=== PATIENT | male | born 1960 | race Caucasian/White ===

== ENCOUNTER → 2016-05-11 | Outpatient (CLI) | payer OTHER ==
--- NOTE | 2016-05-11 08:00 | MR ---
EXAMINATION TYPE: MR angio head wo con DATE OF EXAM: 05/11/2016 7:03 AM COMPARISON: MRA brain 08 March 2013 HISTORY: occipital neuralgia, hx of aneurysm TECHNIQUE: Time of flight images focusing on the [place] were performed without contrast. FINDINGS: The exam is stable. Posterior and anterior circulation are patent. No evident aneurysm. No significant vasculitis or evident vascular malformation. Internal carotid arteries are patent, verteb robasilar system is patent. Vertebral arteries are codominant. Extensive sinus disease noted bilatera lly within the maxillary sinus, ethmoid air cells and frontal sinus incidentally. IMPRESSION: Stable exam. No abnormality evident to account for patient's symptoms ,additional findings above.
== END | disposition home or self-care (01) ==
LOC: RADMRIMAIN 06:39
PROVIDERS: ATTEND Psychiatry & Neurology Neurology
DX: M54.81 Occipital neuralgia (principal)
CPT/HCPCS: 70544

== ENCOUNTER → 2018-07-29 | Day surgery (SDC) | payer OTHER ==
[2018-07-27 09:18] VITALS: BMI 24.9
[~2018-07-29] MED LIST: GLYCOPYRROLATE 0.2 MG/ML 2 ML VIAL ONE; LACTATED RINGERS 1,000 ML IV SCH; LIDOCAINE 1% 20 ML VIAL (10MG/ML) FOR IV START INTRADERMA ONE; LIDOCAINE 1% INJ 10MG/ML (20 ML MDV) ONE; MIDAZOLAM 2 MG/2 ML VIAL IVP ONE; PROPOFOL 10 MG/ML 20 ML VIAL IV ONE
[2018-07-29 08:23] VITALS: TEMP 97
--- NOTE | 2018-07-29 09:45 | P.GSHP ---
History of Present Illness H&P Date: 07/29/18 Chief Complaint: Screening colonoscopy This is a 58-year-old male referred from Dr. Kieran Gardner. Patient presents today for screening colonoscopy. He denies a significant GI complaints. Past Medical History Past Medical History: Hyperlipidemia Additional Past Medical History / Comment(s): HX BRAIN BLEED-2013. CHANGE IN BOWEL HABITS History of Any Multi-Drug Resistant Organisms: None Reported Past Surgical History: Heart Catheterization, Hernia Repair, Orthopedic Surgery Additional Past Surgical History / Comment(s): COLONOSCOPY Past Anesthesia/Blood Transfusion Reactions: Previous Problems w/ Anesthesia Additional Past Anesthesia/Blood Transfusion Reaction / Comment(s): GET VERY ANXIOUS WITH ANESTHESIA Smoking Status: Current every day smoker - Past Family History Mother Family Medical History: No Reported History Medications and Allergies Home Medications Medication Instructions Recorded Confirmed Type Atorvastatin [Lipitor] 40 mg PO HS 07/27/18 07/29/18 History Tolterodine ER [Detrol LA] 2 mg PO DAILY 07/29/18 07/29/18 History Allergies Allergy/AdvReac Type Severity Reaction Status Date / Time Penicillins Allergy Unknown Verified 07/27/18 09:07 Childhood Surgical - Exam Vital Signs Temp Pulse Resp BP Pulse Ox 97.0 F L 81 16 98/64 95 07/29/18 08:16 07/29/18 08:16 07/29/18 08:16 07/29/18 08:16 07/29/18 08:16 - General well developed, well nourished, no distress - Eyes PERRL - ENT normal pinna - Neck no masses - Respiratory normal expansion - Cardiovascular Rhythm: regular - Abdomen Abdomen: soft, non tender Assessment and Plan Assessment: We'll perform screening colonoscopy.
--- NOTE | 2018-07-29 09:56 | P.OP ---
Date of Procedure: 07/29/18 Preoperative Diagnosis: Screening colonoscopy Postoperative Diagnosis: Normal colonoscopy Procedure(s) Performed: Colonoscopy Anesthesia: MAC Surgeon: Cb Beckman Pathology: none sent Condition: stable Disposition: PACU Description of Procedure: PROCEDURE: The patient was placed on the endoscopy table in the lateral position. Digital rectal examination was performed which revealed no abnormalities. The prostate was symmetrical without nodules. Flexible colonoscope was then placed in the patient's anus and passed throughout the entire colon. The ileocecal valve was visualized. The cecum, ascending, transverse, descending and sigmoid colon were normal. The rectum was normal as well. There were no masses, polyps or diverticula noted in the entire colon. SUMMARY OF FINDINGS: Normal colonoscopy.
[2018-07-29 10:02] VITALS: PULSE 61
[2018-07-29 10:08] VITALS: BP 103/62; RESP 17
== END | disposition home or self-care (01) ==
LOC: ORWHC2ENDO 08:03
PROVIDERS: ATTEND Surgery
DX: Z12.11 Encounter for screening for malignant neoplasm of colon (principal); E78.5 Hyperlipidemia, unspecified; F17.200 Nicotine dependence, unspecified, uncomplicated; Z79.899 Other long term (current) drug therapy
CPT/HCPCS: J2250; J2001; J2704; G0121

== ENCOUNTER → 2019-04-01 | Outpatient (CLI) | payer OTHER ==
[2019-04-01 12:07] LABS: Basophils % (A) 0 %; Eosinophils # (A) 0.2 k/uL (0-0.7); Eosinophils % (A) 1 %; HCT 48.7 % (39.0-53.0); HGB 15.5 gm/dL (13.0-17.5); Lymphocytes # (A) 2.8 k/uL (1.0-4.8); Lymphocytes % (A) 26 %; MCH 28.9 pg (25.0-35.0); MCHC 31.9 g/dL (31.0-37.0); MCV 90.7 fL (80.0-100.0); Monocytes # (A) 0.5 k/uL (0-1.0); Monocytes % (A) 4 %; Neutrophils # (A) 7.2 k/uL (1.3-7.7); Neutrophils % (A) 67 %; Platelet Count 185 k/uL (150-450); RBC 5.36 m/uL (4.30-5.90); RDW 13.4 % (11.5-15.5); WBC 10.8 k/uL (3.8-10.6)
[2019-04-01 17:25] LABS: African American GFR (CKD) 75.2 (60.0-200.0); Albumin 4.5 g/dL (3.80-4.90); Albumin/Globulin Ratio 2.05 (1.60-3.17); Anion Gap 7.9 mmol/L (4.00-12.00); BUN/Creat Ratio 12.5 Ratio (12.00-20.00); Calcium 9.2 mg/dL (8.7-10.3); Carbon Dioxide 28.1 mmol/L (21.6-31.8); Globulin 2.2 g/dL (1.6-3.3); Non-African American GFR(CKD) 64.9 (60.0-200.0); Potassium 4.1 mmol/L (3.5-5.5); Total Bilirubin 0.5 mg/dL (0.2-1.2); Total Protein 6.7 g/dL (6.2-8.2)
--- NOTE | 2019-04-03 09:01 | XR ---
EXAMINATION TYPE: XR abdomen 2V DATE OF EXAM: 04/01/2019 12:08 PM CLINICAL HISTORY: Left lower quadrant abdominal pain TECHNIQUE: Upright and supine images of the abdomen were obtained. COMPARISON: None. FINDINGS: Dextroscoliosis of the lumbar spine is seen. No dilated large or small bowel. Lung bases ar e well aerated. No pneumoperitoneum. Postsurgical/radiation change of the prostate gland. IMPRESSION: Nonobstructive bowel gas pattern. No pneumoperitoneum.
[2019-04-03 11:36] LABS: Gliadin AB IgA, Deaminated NEGATIVE (NEGATIVE); Gliadin AB IgA, Unit 10.3 U/mL; Gliadin AB IgG, Deaminated NEGATIVE (NEGATIVE)
== END | disposition home or self-care (01) ==
LOC: LABWHC1 11:39
PROVIDERS: ATTEND Internal Medicine Gastroenterology
DX: R10.32 Left lower quadrant pain (principal)
CPT/HCPCS: 36415; 74019; 80053; 82150; 83516; 83690; 84439; 84443; 85025

== ENCOUNTER → 2019-05-20 | Outpatient (CLI) | payer OTHER ==
--- NOTE | 2019-05-22 00:12 | CT ---
EXAMINATION TYPE: CT abdomen pelvis w con DATE OF EXAM: 05/20/2019 COMPARISON: NONE HISTORY: 59-year-old male LLQ pain, change in bowel habits TECHNIQUE: Contiguous axial scanning of the abdomen and pelvis following administration of 100 ml Iso victor manuel 300 IV contrast. Delayed images through the kidneys and coronal/sagittal reconstructions perform ed. CT DLP: 899.2 mGycm Automated exposure control for dose reduction was used. FINDINGS: Heart normal size without pericardial effusion. Strandy atelectasis and dependent atelectasis in the visualized lung bases. No pleural effusion. Liver mildly enlarged at 18.3 cm without focal lesion. Portal venous system is patent. No biliary garett nisha dilatation. Gallbladder, adrenal glands, right kidney, spleen, and pancreas appear within normal limits. 1.3 cm hypodense lesion central left kidney in the midpole too small fragment. CT characterization, l ikely benign cyst. No dilated small bowel, free fluid, or free air. Numerous nonenlarged retroperitoneal lymph nodes measuring up to 7 mm there is scattered numerous sma ll mesenteric lymph nodes are also present measuring up to 4 mm. Findings likely reactive/post inflam matory. Oral contrast progressed to the mid transverse colon. No significant stool burden. Normal appendix. N o significant diverticular change seen. No pericolonic inflammatory process. Small fatty umbilical hernia. Bladder urine distended. There seems to be some brachytherapy seeds embedded in the prostate gland. A couple of these protrude slightly into the right bladder base, refer to coronal image 48. Prostate g land measures 5.3 cm wide. Small fat-containing left inguinal hernia. No abnormal fluid collection in the pelvis or pelvic lymphadenopathy. Bones: Mild degenerative disc disease throughout the lumbar spine. IMPRESSION: 1. BRACHYTHERAPY SEEDS EMBEDDED IN THE PROSTATE GLAND. A COUPLE OF THESE ARE BEGINNING TO SLIGHTLY MS OTRUDE INTO THE RIGHT BLADDER BASE. 2. PROSTATOMEGALY AT 5.3 CM WIDE. 3. SMALL FAT-CONTAINING LEFT INGUINAL HERNIA. 4. SMALL FATTY UMBILICAL HERNIA.
== END | disposition home or self-care (01) ==
LOC: RADCTMAIN 12:01
PROVIDERS: ATTEND Internal Medicine Gastroenterology
DX: K40.90 Unilateral inguinal hernia, without obstruction or gangrene, not specified as recurrent (principal); K42.9 Umbilical hernia without obstruction or gangrene; N40.0 Benign prostatic hyperplasia without lower urinary tract symptoms; R10.32 Left lower quadrant pain
CPT/HCPCS: 74177; Q9967

== ENCOUNTER → 2020-07-19 | Outpatient (CLI) | payer OTHER | END | disposition home or self-care (01) | LOC: LABWHC1 11:11 | PROVIDERS: ATTEND Surgery | DX: Z20.822 Contact with and (suspected) exposure to COVID-19 (principal) | CPT/HCPCS: U0003; C9803; U0005 ==

== ENCOUNTER 2020-07-26 08:28 | Day surgery (SDC) | payer OTHER ==
[2020-07-23 17:03] VITALS: BMI 22.5
[~2020-07-26 08:28] MED LIST changes: -GLYCOPYRROLATE 0.2 MG/ML 2 ML VIAL ONE; -LIDOCAINE 1% 20 ML VIAL (10MG/ML) FOR IV START INTRADERMA ONE; -LIDOCAINE 1% INJ 10MG/ML (20 ML MDV) ONE; -MIDAZOLAM 2 MG/2 ML VIAL IVP ONE; -PROPOFOL 10 MG/ML 20 ML VIAL IV ONE
[2020-07-26 09:03] VITALS: TEMP 97.8
[2020-07-26] MEDS ORDERED: LIDOCAINE 1% (10MG/ML) FOR IV START INTRADERMA ONE (09:04)
[2020-07-26] MEDS ORDERED: LIDOCAINE 1% INJ 10MG/ML (20 ML MDV) ONE (09:07)
[2020-07-26] MEDS ORDERED: PROPOFOL 10 MG/ML 20 ML VIAL IV ONE (09:07)
[2020-07-26] MEDS ORDERED: fentaNYL (PF) 50 MCG/ML 2 ML AMP ONE (09:07)
[2020-07-26] MEDS ORDERED: GLYCOPYRROLATE 0.2 MG/ML 2 ML VIAL ONE (09:07)
--- NOTE | 2020-07-26 09:28 | P.GSHP ---
History of Present Illness H&P Date: 07/26/20 60-year-old male presents for upper and lower endoscopy. He states he has had some recent epigastric pain and has been taking Pepto-Bismol to control pain. He is also due for a screening colonoscopy. He has had multiple colonoscopies in the past and has had polyps noted in the past. He denies any recent changes in bowel function. He does admit to occasional blood in his stool. - Review of Systems All systems: negative Past Medical History Past Medical History: Hyperlipidemia Additional Past Medical History / Comment(s): HX BRAIN BLEED-2013. CHANGE IN BOWEL HABITS History of Any Multi-Drug Resistant Organisms: None Reported Past Surgical History: Hernia Repair, Orthopedic Surgery Additional Past Surgical History / Comment(s): COLONOSCOPY. BILAT HAND SX Past Anesthesia/Blood Transfusion Reactions: Previous Problems w/ Anesthesia Additional Past Anesthesia/Blood Transfusion Reaction / Comment(s): GET VERY ANXIOUS WITH ANESTHESIA Smoking Status: Current every day smoker - Past Family History Mother Family Medical History: No Reported History Medications and Allergies Home Medications Medication Instructions Recorded Confirmed Type Omeprazole 20 mg PO DAILY 07/23/20 07/26/20 History Rosuvastatin [Crestor] 10 mg PO HS 07/23/20 07/26/20 History Allergies Allergy/AdvReac Type Severity Reaction Status Date / Time Penicillins Allergy Unknown Verified 07/26/20 09:06 Childhood Surgical - Exam Osteopathic Statement: *. No significant issues noted on an osteopathic structural exam other than those noted in the History and Physical/Consult. Vital Signs Temp Pulse Resp BP Pulse Ox 97.8 F 86 16 104/71 95 07/26/20 08:41 07/26/20 08:41 07/26/20 08:41 07/26/20 08:41 07/26/20 08:41 - General well nourished, no distress - Respiratory normal respiratory effort - Abdomen Abdomen: soft, non tender Assessment and Plan Plan: 60-year-old male presents for upper and lower endoscopy. Risks, benefits and alternatives were provided to the patient. He did provide consent prior to attending the endoscopy suite. Further recommendations to be made after sandeep mason.
--- NOTE | 2020-07-26 09:32 | P.PCN ---
Date of Procedure: 07/26/20 Preoperative Diagnosis: Epigastric pain Screening for colon cancer Postoperative Diagnosis: Gastritis Duodenitis Hiatal hernia Sigmoid colon polyp Procedure(s) Performed: EGD with biopsy Colonoscopy with forcep polypectomy Anesthesia: MAC Surgeon: Nitesh Lipscomb Pathology: other (Biopsies of antrum, duodenum, esophagus. Sigmoid colon polyp) Condition: stable Disposition: same day Indications for Procedure: 60-year-old male presents for upper and lower endoscopy. He has had recent epigastric pain that he has been controlling with Pepto-Bismol. He is also due for screening colonoscopy. He has had polyps in the past. He denies any recent significant changes in bowel function but does admit to occasional blood in his stool. Risks, benefits and alternatives were provided to the patient. He did provide consent prior to attending the endoscopy suite. Operative Findings: Gastritis Duodenitis Small hiatal hernia Sigmoid colon polyp Description of Procedure: The patient was brought to the endoscopy suite and placed in left lateral decubitus position and adequate sedation was achieved using conscious sedation. A bite block was placed and an endoscope was then placed in the oropharynx and advanced under endoscopic visualization. The endoscope was advanced through the esophagus into the stomach, through the gastric antrum and into the pylorus. The third portion of the duodenum was visualized. The endoscope was then slowly withdrawn. The first portion the duodenum was noted to have significant inflammatory changes. Multiple biopsies were taken. The antrum was also noted to have inflammatory changes. Biopsies were taken. The gastric body distended normally and the gastric folds appeared normal and flattened with insufflation. A retroflexed view of the fundus and GE junction revealed a small hiatal hernia. The esophagus appeared endoscopically normal. Biopsies were taken. Excess air was removed and the scope was withdrawn. A digital rectal exam was performed and internal hemorrhoids were palpated. An endoscope was then placed in the rectum and advanced to the cecum as identified by landmarks including the appendiceal orifice and the ileocecal valve. The prep was good. The colonoscope was then slowly withdrawn, examining for any mucosal abnormalities. The cecum, ascending, transverse, descending and sigmoid colon were visualized adequately. There were no large neoplastic lesions noted throughout the colon. There was a small polyp noted in the sigmoid colon. This was removed with forcep polypectomy. Hemostasis was maintained. There was no evidence of diverticulosis. Retroflexion was performed in the rectum and internal hemorrhoids were visible. Excess air was removed, the colonoscope was withdrawn and the procedure terminated. The patient was then transferred to the recovery unit in stable condition. Repeat colonoscopy should be performed in 5 years.
[2020-07-26 09:45] VITALS: BP 104/69; PULSE 87; RESP 16
== END 2020-07-26 10:23 | disposition home or self-care (01) ==
LOC: ORWHC2ENDO 08:28
PROVIDERS: ATTEND Surgery
DX: K29.50 Unspecified chronic gastritis without bleeding (principal); K29.80 Duodenitis without bleeding; K20.90 Esophagitis, unspecified without bleeding; Z12.11 Encounter for screening for malignant neoplasm of colon; D12.5 Benign neoplasm of sigmoid colon; K44.9 Diaphragmatic hernia without obstruction or gangrene; E78.5 Hyperlipidemia, unspecified; F17.210 Nicotine dependence, cigarettes, uncomplicated; Z79.899 Other long term (current) drug therapy; Z88.0 Allergy status to penicillin
CPT/HCPCS: 88305; 43239; 45380; J2001; J3010; J2704

== ENCOUNTER → 2021-04-16 | Outpatient (CLI) | payer OTHER ==
[~2021-04-16] MED LIST changes: +DOBUTamine DRIP for NUC MED 500 MG in DEXTROSE/WATER 1 250ML.BAG IV PRN; -LACTATED RINGERS 1,000 ML IV SCH
--- NOTE | 2021-04-16 13:34 | ECHOS ---
STRESS ECHOCARDIOGRAM DATE OF SERVICE: 04/16/2021 INDICATIONS: Chest pain BASELINE HEART RATE: 73 BASELINE BLOOD PRESSURE: 113/77 MAXIMUM HEART RATE: 135 MAXIMUM BLOOD PRESSURE: 140/90 85% MPHR: 100% MPHR: METS: MAXIMUM STAGE REACHED: TOTAL EXERCISE TIME: CLINICAL INFORMATION: Baseline EKG revealed normal sinus rhythm without significant ST-T changes. With dobutamine administration as per protocol, the heart rate went up to 133 beats per minute, which is 85% of predicted maximal. Patient did not have any significant symptoms. EKG did not reveal any ST-segment changes to indicate ischemia. There was no significant arrhythmia. By EKG criteria, this is a negative dobutamine stress test. Baseline echo images revealed normal wall motion and wall thickening of all segments. With dobutamine administration, there was progressive increase in contractility noted. There is no evidence to suggest any dobutamine-induced stress-induced ischemia. At the peak dose, there was vigorous contractility noted. There is no stress-induced ischemia on the dobutamine echocardiogram. FINAL IMPRESSION: 1. By EKG criteria this is an unremarkable dobutamine stress test. 2. Normal dobutamine stress echocardiogram. MMODL / IJN: [id number] /
== END | disposition home or self-care (01) ==
LOC: RADNMMAIN 09:05
PROVIDERS: ATTEND Family Medicine
DX: I25.10 Atherosclerotic heart disease of native coronary artery without angina pectoris (principal)
CPT/HCPCS: 93351

== ENCOUNTER → 2021-05-25 | Outpatient (CLI) | payer OTHER ==
--- NOTE | 2021-05-25 13:33 | MR ---
EXAMINATION TYPE: MR iac wo/w con DATE OF EXAM: 05/25/2021 COMPARISON: NONE HISTORY: Hearing loss, greater on the left. TECHNIQUE: Multiplanar, multisequence images of the brain and brainstem is performed without and with IV contras t, utilizing 9 mL intravenous Gadavist . Acoustic nerve disorder protocol. FINDINGS: Diffusion weighted images demonstrate no evidence of a recent infarct or other diffusion ab normality. There is mild ventricular and sulcal prominence. Areas of mild T2 hyperintensity in the p eriventricular white matter. Midline structures demonstrate normal morphology. The craniocervical junction appears within normal limits. Normal vascular flow voids are seen. Globes are intact and visualized sinuses are clear. No suspicious fluid signal in the bilateral mastoid air cells. The vestibulocochlear complexes are sy mmetric and felt to be within normal limits. There is no suspicious enhancing cerebellopontine angle mass identified bilaterally. IMPRESSION: Source of patient's left-sided hearing loss not identified. Background mild diffuse age- related cerebral atrophy and chronic small vessel ischemic changes are appreciated.
== END | disposition home or self-care (01) ==
LOC: RADMRIMAIN 12:34
PROVIDERS: ATTEND Otolaryngology
DX: H91.92 Unspecified hearing loss, left ear (principal)
CPT/HCPCS: 70553

== ENCOUNTER → 2024-10-13 | Outpatient (CLI) | payer BC ==
--- NOTE | 2024-10-13 11:13 | MR ---
EXAMINATION TYPE: MR Prostate wo/w con DATE OF EXAM: 10/13/2024 9:39 AM COMPARISON: None. CLINICAL INDICATION: Male, 64 years old with history of R31.21 ASYMPTOMATIC MICROSCOPIC HEMATURIA; El evated PSA, asymptomatic microscopic hematuria. TECHNIQUE: Multi-planar, multi-sequence imaging of the pelvis is performed prior to and following the uncomplicated administration of bolus intravenous gadolinium. IV Contrast: 8 mL Gadobutrol Interpretive Criteria: PI-RADS v2.1 SERUM PSA: 24 = 1.33 SURGICAL PATHOLOGY: No data available. FINDINGS: Prostatic dimensions: 5.2 x 4.9 x 3.4 cm. "Bullet" Volume:56.70 (PSA density=0.02 ng/mL/mL) CENTRAL GLAND (Central and Transition Zones/CZ+TZ): Susceptibility artifact compatible with patient's history of UROLIFT Multiple bilateral, heterogenous appearing hypertrophic stromal nodules, without suspicious lesion (P I-RADS 2) PERIPHERAL ZONE (PZ): Bilateral linear, indistinct wedgelike areas of low ADC, and low T2 signal, No evidence of masslike a bnormality, or localized perfusional hypervascularity, to further suggest a focus of clinically signi ficant prostate cancer. (PI-RADS 2) SEMINAL VESICLES (SV): Symmetric and unremarkable. PERIPROSTATIC TISSUES: Unremarkable. LYMPH NODES: No enlarged pelvic lymph node. REMAINING PELVIS: Bladder wall is within normal limits given distention. No abnormal free or organized intrapelvic fluid collection. No pathologic bowel dilation or mural thickening. Colonic diverticula are present. Left fat containing inguinal hernia OSSEOUS STRUCTURES: No suspicious osseous abnormality. IMPRESSION: 1. No specific features for high-risk prostate cancer. Maximum PI-RADS score: 2. 2. Moderate BPH, estimated gland volume 56.70 (PSA density=0.02 ng/mL/mL) 3. No suspicious osseous lesion. No lymphadenopathy. No evidence of prostate adenocarcinoma involving the periprostatic tissues. [facility], , 10/13/2024 11:11 AM
== END | disposition home or self-care (01) ==
LOC: RADMRIMAIN 08:45
PROVIDERS: ATTEND Urology
DX: R97.20 Elevated prostate specific antigen [PSA] (principal); R31.29 Other microscopic hematuria; N40.0 Benign prostatic hyperplasia without lower urinary tract symptoms
CPT/HCPCS: 72197; A9585

== ENCOUNTER 2024-11-05 08:48 | Emergency (ER) | payer BC ==
[2024-11-05 08:55] VITALS: RESP 18
[2024-11-05 10:29] LABS: Basophils # (A) 0.08 10*3/uL (0.00-0.10); Basophils % (A) 0.8 %; Eosinophils # (A) 0.07 10*3/uL (0.04-0.35); Eosinophils % (A) 0.7 %; HCT 45.1 % (39.6-50.0); HGB 14.9 g/dL (13.0-17.0); Lymphocytes # (A) 2.15 10*3/uL (0.90-5.00); Lymphocytes % (A) 22.2 %; MCH 29.4 pg (27.0-32.0); MCHC 33.0 g/dL (32.0-37.0); MCV 89.0 fL (80.0-97.0); Monocytes # (A) 0.61 10*3/uL (0.20-1.00); Monocytes % (A) 6.3 %; Neutrophils # (A) 6.72 10*3/uL (1.80-7.70); Neutrophils % (A) 69.4 %; Platelet Count 250 10*3/uL (140-440); RBC 5.07 10*6/uL (4.40-5.60); RDW 13.4 % (11.5-14.5); WBC 9.69 10*3/uL (4.50-10.00)
[2024-11-05 10:41] LABS: ALT 18 U/L (4-49); AST 23 U/L (17-59); African American GFR (CKD) 73 (>60 ml/min/1.73 sqM); Albumin 4.5 g/dL (3.5-5.0); Alkaline Phosphatase 86 U/L (38-126); Anion Gap 9 mmol/L; Blood Urea Nitrogen 15 mg/dL (9-20); Calcium 9.4 mg/dL (8.4-10.2); Carbon Dioxide 28 mmol/L (22-30); Chloride 101 mmol/L (98-107); Color,Urine Dark Red; Creatine Kinase 75 U/L (55-170); Glucose 107 mg/dL (74-99); INR 1.0 (<1.2); Non-African American GFR(CKD) 63 (>60 ml/min/1.73 sqM); Partial Thromboplastin Time 27.3 sec (22.0-30.0); Potassium 4.4 mmol/L (3.5-5.1); Prothrombin Time 10.6 sec (10.0-12.5); RBC,Urine >182 /hpf (0-5); Sodium 138 mmol/L (137-145); Total Protein 7.5 g/dL (6.3-8.2); WBC,Urine 7 /hpf (0-5)
--- NOTE | 2024-11-05 11:07 | US ---
EXAMINATION TYPE: US renals and bladder DATE OF EXAM: 11/05/2024 COMPARISON: CT abdomen and pelvis 05/20/2019 CLINICAL INDICATION: Male, 64 years old with history of hematuria s/p turp; Hematuria TECHNIQUE: Grayscale imaging of the bilateral kidneys and urinary bladder: FINDINGS: EXAM MEASUREMENTS: Right Kidney: 8.5 x 5.3 x 4.6 cm Left Kidney: 11.2 x 5.8 x 4.5 cm Right Kidney: Anechoic area mid pole 1.1 x 1.4 x 1.7 cm. Left Kidney: Anechoic area mid pole 1.9 x 2.0 x 1.1 cm Bladder: Anechoic Bilateral Jets seen: yes There is no evidence for hydronephrosis at this point in time. No nephrolithiasis is seen. Left jenna l mid pole 2.0 cm simple cyst. Right renal midpole 1.7 cm simple cyst. No solid renal masses are iden tified. Corticomedullary differentiation is maintained bilaterally. The urinary bladder is anechoic. Bilateral ureteral jets identified. IMPRESSION: 1. No hydronephrosis or nephrolithiasis. 2. Simple bilateral renal cysts. 3. Unremarkable urinary bladder [facility], , 11/05/2024 11:05 AM
--- NOTE | 2024-11-05 13:27 | ED ---
General Adult HPI - General Chief complaint: Urogenital Stated complaint: Urogenital Time Seen by Provider: 11/05/24 09:10 Source: patient, RN notes reviewed, old records reviewed Mode of arrival: ambulatory Limitations: no limitations - History of Present Illness Initial comments: 64-year-old male presents emergency department complaining of hematuria. Has been having increased hematuria status post TURP procedure. This procedure was completed by Dr. Triana out of [facility] u[facility] group. States he had a Huizar catheter removed on Wednesday and had been doing well with yellow urine however began having hematuria again yesterday and last night. Continued this morning which is why presents for evaluation. Is not on blood thinners. He has no other symptoms. Presents for further evaluation. - Related Data Home Medications Medication Instructions Recorded Confirmed Rosuvastatin [Crestor] 10 mg PO HS 07/23/20 07/26/20 Previous Rx's Medication Instructions Recorded Pantoprazole Sodium [Protonix] 40 mg PO DAILY #30 tablet. 07/26/20 Cephalexin [Keflex] 500 mg PO Q12HR 7 Days #14 cap 11/05/24 Allergies Allergy/AdvReac Type Severity Reaction Status Date / Time Penicillins Allergy Unknown Verified 11/05/24 08:51 Childhood Review of Systems ROS Statement: Those systems with pertinent positive or pertinent negative responses have been documented in the HPI. Review of Systems: CONST: Denies fever EYES: Denies blurry vision ENT: Denies nasal congestion C/V: Denies Chest pain RESP: Denies shortness of breath GI: Denies abdominal pain : Endorses hematuria SKIN: Denies rash. MSK: Denies joint pain. NEURO: Denies headache ROS Other: All systems not noted in ROS Statement are negative. Past Medical History Past Medical History: Hyperlipidemia, Prostate Disorder Additional Past Medical History / Comment(s): HX BRAIN BLEED-2013. CHANGE IN BOWEL HABITS History of Any Multi-Drug Resistant Organisms: None Reported Past Surgical History: Heart Catheterization, Hernia Repair, Orthopedic Surgery, Prostate Surgery Additional Past Surgical History / Comment(s): COLONOSCOPY Past Anesthesia/Blood Transfusion Reactions: Previous Problems w/ Anesthesia Additional Past Anesthesia/Blood Transfusion Reaction / Comment(s): GET VERY ANXIOUS WITH ANESTHESIA Past Psychological History: Anxiety Smoking Status: Current every day smoker Past Alcohol Use History: Rare Past Drug Use History: None Reported - Past Family History Mother Family Medical History: No Reported History General Exam - General Exam Comments Initial Comments: General: Appears in no acute distress. HEAD: Normal with no signs of head trauma. EYES: EOMI ENT: Hearing grossly intact, normal oropharynx. RESPIRATORY: Clear breath sounds bilaterally. No wheezes, rales, or rhonchi. C/V: Regular rate and rhythm. S1 and S2 auscultated, no edema, peripheral pulses 2+ and intact throughout ABD: Abd is soft, nontender, nondistended EXT: Normal range of motion, no obvious deformity SKIN: No rashes or lesions observed on exposed skin. NEURO: Alert and oriented x 4. Ambulates without difficulty. Limitations: no limitations Course Vital Signs 11/05/24 11/05/24 08:51 13:58 Temperature 97.7 F 98.0 F Pulse Rate 84 52 L Respiratory 18 18 Rate Blood Pressure 136/86 114/70 O2 Sat by Pulse 98 98 Oximetry Medical Decision Making - Medical Decision Making Was pt. sent in by a medical professional or institution (, PA, [employer], urgent care, hospital, or skilled nursing...) When possible be specific @ -No Did you speak to anyone other than the patient for history (EMS, parent, family, police, friend...)? What history was obtained from this source @ -No Did you review nursing and triage notes (agree or disagree)? Why? @ -I reviewed and agree with nursing and triage notes Were old charts reviewed (outside hosp., previous admission, EMS record, old EKG, old radiological studies, urgent care reports/EKG's, skilled nursing records)? Report findings @ -No old charts were reviewed Differential Diagnosis (chest pain, altered mental status, abdominal pain women, abdominal pain men, vaginal bleeding, weakness, fever, dyspnea, syncope, headache, dizziness, GI bleed, back pain, seizure, CVA, palpatations, mental health, musculoskeletal)? @ -Hematuria, UTI, postop bleeding, postop complication. This list is not all inclusive. EKG interpreted by me (3pts min.). @ -None done X-rays interpreted by me (1pt min.). @ -None done CT interpreted by me (1pt min.). @ -None done U/S interpreted by me (1pt. min.). @ -Renal ultrasound reveals no obvious acute process. Patient has simple bilateral renal cyst. What testing was considered but not performed or refused? (CT, X-rays, U/S, labs)? Why? @ -None What meds were considered but not given or refused? Why? @ -None Did you discuss the management of the patient with other professionals (professionals i.e. DrJaren, PA, [employer], lab, RT, psych nurse, social director, skin carver, teacher, driver license reviewing officer, immigration case manager)? Give summary @ -Attempted to contact patient's urologist, Dr. Triana without success. I was able to contact our on-call urologist, Dr. Gunn who was in agreement with plan for discharge home, monitoring of symptoms, hydration, as well as empiric antibiotics. Recommended he follow-up with his urologist in the next 1 to 3 days. Was smoking cessation discussed for >3mins.? @ -No Was critical care preformed (if so, how long)? @ -No Were there social determinants of health that impacted care today? How? (Homelessness, low income, unemployed, alcoholism, drug addiction, transportation, low edu. Level, literacy, decrease access to med. care, custodial, rehab)? @ -No Was there de-escalation of care discussed even if they declined (Discuss DNR or withdrawal of care, Hospice)? DNR status @ -No What co-morbidities impacted this encounter? (DM, HTN, Smoking, COPD, CAD, Cancer, CVA, ARF, Chemo, Hep., AIDS, mental health diagnosis, sleep apnea, morbid obesity)? @ -Recent TURP procedure Was patient admitted / discharged? Hospital course, mention meds given and route, prescriptions, significant lab abnormalities, going to OR and other pertinent info. @ -Patient presents emergency department complaining of hematuria. Had recent TURP procedure. Has no other acute complaints. Initially did have some hematuria postop however it improved but returned again yesterday. Follows up with Dr. Triana from another facility. Vitals within acceptable limits. We will obtain basic labs, ultrasound kidney and bladder, as well as attempted contact his urologist. Vitals within acceptable limits. Laboratory studies are remarkable for hematuria with some white cells however no other obvious acute process. Ultrasound relatively unremarkable. Simple cyst present but no obvious acute process. Unsuccessful in contacting Dr. Triana as he did not return her phone calls or pages. I was able to contact our on-call urologist, Dr. Gunn who was in agreement with plan for discharge home, monitoring of symptoms, hydration, as well as empiric antibiotics. Recommended he follow-up with his urologist in the next 1 to 3 days. Discussed with the patient this plan and he was in agreement this plan. Patient given a dose of Rocephin as well as a prescription for Keflex. Strict return precautions discussed. I recommended rest, hydration. He was in agreement this plan. I instructed the patient to follow up with their PCP in the next 1-3 days. I explained that the patient should return to the emergency department if they experience any worsening symptoms. Strict return precautions were discussed with the patient. The patient expressed understanding of these instructions. I answered all questions that the patient had. The patient was discharged home in good condition with their prescriptions and follow up information. Undiagnosed new problem with uncertain prognosis? @ -No Drug Therapy requiring intensive monitoring for toxicity (Heparin, Nitro, Insulin, Cardizem)? @ -No Were any procedures done? @ -No Diagnosis/symptom? @ -Postoperative hematuria Acute, or Chronic, or Acute on Chronic? @ -Acute Uncomplicated (without systemic symptoms) or Complicated (systemic symptoms)? @ -Uncomplicated Side effects of treatment? @ -No Exacerbation, Progression, or Severe Exacerbation? @ -No Poses a threat to life or bodily function? How? (Chest pain, USA, NM, pneumonia, PE, COPD, DKA, ARF, appy, cholecystitis, CVA, Diverticulitis, Homicidal, Suicidal, threat to staff... and all critical care pts) @ -Unlikely at this time - Lab Data Result diagrams: 11/05/24 10:26 11/05/24 10:26 Lab Results 11/05/24 11/05/24 11/05/24 Range/Units 10:26 10:26 10:26 WBC 9.69 (4.50-10.00) 10*3/uL RBC 5.07 (4.40-5.60) 10*6/uL Hgb 14.9 (13.0-17.0) g/dL Hct 45.1 (39.6-50.0) % MCV 89.0 (80.0-97.0) fL MCH 29.4 (27.0-32.0) pg MCHC 33.0 (32.0-37.0) g/dL Plt Count 250 (140-440) 10*3/uL MPV 10.9 (9.5-12.2) fL Immature Gran % (Auto) 0.6 % Neutrophils % 69.4 % Lymphocytes % 22.2 % Monocytes % 6.3 % Eosinophils % 0.7 % Basophils % 0.8 % Immature Gran # 0.06 H (0.00-0.04) 10*3/uL Neutrophils # 6.72 (1.80-7.70) 10*3/uL Lymphocytes # 2.15 (0.90-5.00) 10*3/uL Monocytes # 0.61 (0.20-1.00) 10*3/uL Eosinophils # 0.07 (0.04-0.35) 10*3/uL Basophils # 0.08 (0.00-0.10) 10*3/uL PT 10.6 (10.0-12.5) sec INR 1.0 (<1.2) APTT 27.3 (22.0-30.0) sec Sodium (137-145) mmol/L Potassium (3.5-5.1) mmol/L Chloride (98-107) mmol/L Carbon Dioxide (22-30) mmol/L Anion Gap mmol/L BUN (9-20) mg/dL Creatinine (0.66-1.25) mg/dL Est GFR (CKD-EPI)AfAm (>60 ml/min/1.73 sqM) Est GFR (CKD-EPI)NonAf (>60 ml/min/1.73 sqM) Glucose (74-99) mg/dL Calcium (8.4-10.2) mg/dL Total Bilirubin (0.2-1.3) mg/dL AST (17-59) U/L ALT (4-49) U/L Alkaline Phosphatase (38-126) U/L Creatine Kinase (55-170) U/L Total Protein (6.3-8.2) g/dL Albumin (3.5-5.0) g/dL Urine Color Dark Red Urine Appearance Bloody (Clear) Urine RBC >182 H (0-5) /hpf Urine WBC 7 H (0-5) /hpf Urine WBC Clumps Occasional H (None) /hpf 11/05/24 Range/Units 10:26 WBC (4.50-10.00) 10*3/uL RBC (4.40-5.60) 10*6/uL Hgb (13.0-17.0) g/dL Hct (39.6-50.0) % MCV (80.0-97.0) fL MCH (27.0-32.0) pg MCHC (32.0-37.0) g/dL Plt Count (140-440) 10*3/uL MPV (9.5-12.2) fL Immature Gran % (Auto) % Neutrophils % % Lymphocytes % % Monocytes % % Eosinophils % % Basophils % % Immature Gran # (0.00-0.04) 10*3/uL Neutrophils # (1.80-7.70) 10*3/uL Lymphocytes # (0.90-5.00) 10*3/uL Monocytes # (0.20-1.00) 10*3/uL Eosinophils # (0.04-0.35) 10*3/uL Basophils # (0.00-0.10) 10*3/uL PT (10.0-12.5) sec INR (<1.2) APTT (22.0-30.0) sec Sodium 138 (137-145) mmol/L Potassium 4.4 (3.5-5.1) mmol/L Chloride 101 (98-107) mmol/L Carbon Dioxide 28 (22-30) mmol/L Anion Gap 9 mmol/L BUN 15 (9-20) mg/dL Creatinine 1.20 (0.66-1.25) mg/dL Est GFR (CKD-EPI)AfAm 73 (>60 ml/min/1.73 sqM) Est GFR (CKD-EPI)NonAf 63 (>60 ml/min/1.73 sqM) Glucose 107 H (74-99) mg/dL Calcium 9.4 (8.4-10.2) mg/dL Total Bilirubin 0.4 (0.2-1.3) mg/dL AST 23 (17-59) U/L ALT 18 (4-49) U/L Alkaline Phosphatase 86 (38-126) U/L Creatine Kinase 75 (55-170) U/L Total Protein 7.5 (6.3-8.2) g/dL Albumin 4.5 (3.5-5.0) g/dL Urine Color Urine Appearance (Clear) Urine RBC (0-5) /hpf Urine WBC (0-5) /hpf Urine WBC Clumps (None) /hpf Disposition Clinical Impression: Hematuria, Post-operative complication Disposition: HOME SELF-CARE Condition: Good Instructions (If sedation given, give patient instructions): Hematuria (ED) Additional Instructions: As we discussed, you present with postoperative hematuria. Your workup today w as unremarkable. He did have blood in your urine. We will empirically treat you with antibiotics for home. I recommend you follow-up with your urologist Dr. Triana tomorrow. Return to the ER if any worsening symptoms. Prescriptions: Cephalexin [Keflex] 500 mg PO Q12HR 7 Days #14 cap Is patient prescribed a controlled substance at d/c from ED?: No Referrals: Kieran Luna DO [Primary Care Provider] - 1-2 days Time of Disposition: 13:27
[2024-11-05] MEDS: cefTRIAXone IN SWFI 1,000 MG/10 ML SYRINGE IVP STA (13:45)
[2024-11-05 14:00] VITALS: BP 114/70; PULSE 52; TEMP 98
== END 2024-11-05 14:00 | disposition home or self-care (01) ==
LOC: EC 08:48
DX: R31.9 Hematuria, unspecified (principal); Z90.79 Acquired absence of other genital organ(s); F17.200 Nicotine dependence, unspecified, uncomplicated; Z88.0 Allergy status to penicillin
CPT/HCPCS: 36415; 80053; 82550; 85025; 85610; 85730; 81001; 76770; 99284; 96374; J0696